=== PATIENT | male | born 1970 | race Caucasian/White ===

== ENCOUNTER 2016-12-09 10:41 | Emergency (ER) | payer SELFPAY ==
[2016-12-09 11:19] VITALS: BP 170/110
--- NOTE | 2016-12-09 12:17 | RAD ---
INDICATION: Traumatic fracture left ankle COMPARISON: None TECHNIQUE: AP, lateral, and oblique views were obtained. FINDINGS: There is a mildly comminuted, oblique fracture of the distal tibial diaphysis with minimal distraction and minimal angular deformity. There is a comminuted, nondisplaced distal fibular metaphyseal fracture. There is associated soft tissue swelling. The ankle mortise is intact. IMPRESSION: TIBIAL AND FIBULAR FRACTURES DESCRIBED.
--- NOTE | 2016-12-09 12:37 | UC ---
Lower Extremity/Ankle HPI - HPI Summary HPI Summary: LEFT ANKLE / LOWER LEG PAIN X 1 DAY TWISTED HIS LEFT ANKLE PLAYING BASKETBALL ONE DAY AGO SEVER PAIN AND SWELLING OF THE LEFT ANKLE AND LOWER LEG CANNOT BEAR WEIGHT - History of Current Complaint Chief Complaint: UCLowerExtremity Stated Complaint: LEFT FOOT SWELLING Time Seen by Provider: 12/09/16 11:03 Hx Obtained From: Patient Onset/Duration: Sudden Onset, Lasting Days - 1, Still Present Severity Initially: Severe Severity Currently: Severe Aggravating Factor(s): Standing, Ambulation Alleviating Factor(s): Rest, Elevation, Ice Able to Bear Weight: No - Allergies/Home Medications Allergies/Adverse Reactions: Allergies Allergy/AdvReac Type Severity Reaction Status Date / Time No Known Allergies Allergy Verified 12/09/16 11:06 Home Medications: Home Medications Blood Pressure Med 1 tab QPM 12/09/16 [History Confirmed 12/09/16] PMH/Surg Hx/FS Hx/Imm Hx Cardiovascular History: Hypertension - Surgical History Surgical History: None - Family History Known Family History: Positive: Hypertension - Social History Alcohol Use: Occasionally Substance Use Type: None Smoking Status (MU): Current Every Day Smoker Amount Used/How Often: 1/2 ppd - Immunization History Most Recent Influenza Vaccination: NONE 2015 Most Recent Tetanus Shot: UTD Most Recent Pneumonia Vaccination: N/A Review of Systems Constitutional: Negative Skin: Negative Eyes: Negative ENT: Negative Respiratory: Negative Cardiovascular: Negative Musculoskeletal: Other: - LEFT ANKLE PAIN All Other Systems Reviewed And Are Negative: Yes Physical Exam Triage Information Reviewed: Yes Appearance: Well-Appearing, Well-Nourished, Pain Distress Vital Signs: Initial Vital Signs Temp 99.2 F 12/09/16 11:07 Pulse 91 12/09/16 11:07 Resp 16 12/09/16 11:07 BP 175/104 12/09/16 11:07 Pulse Ox 98 12/09/16 11:07 Vital Signs Reviewed: Yes Eyes: Positive: Conjunctiva Clear ENT: Positive: Normal ENT inspection, Hearing grossly normal, Pharynx normal Neck exam: Normal Respiratory: Positive: Chest non-tender, Lungs clear, Normal breath sounds Cardiovascular: Positive: RRR, No Murmur, Pulses Normal Musculoskeletal: Positive: Other: - LEFT ANKLE : + SWELLING, + DIFFUSE TENDERNESS, SEVER TENDERNESS DISTAL TIB/FIB AREA LIMITED ROM DUE TO SEVER PAIN . NORMAL MOSQUERA TEST Diagnostics - Laboratory Diagnostic Studies Completed/Ordered: FINDINGS: There is a mildly comminuted, oblique fracture of the distal tibial diaphysis. with minimal distraction and minimal angular deformity. There is a comminuted,. nondisplaced distal fibular metaphyseal fracture. There is associated soft tissue. swelling. The ankle mortise is intact. IMPRESSION: TIBIAL AND FIBULAR FRACTURES DESCRIBED. Lower Extremity Course/Dx - Differential Dx/Diagnosis Provider Diagnoses: FRACTURE LEFT TIB/FIB Discharge - Discharge Plan Condition: Stable Disposition: HOME Prescriptions: HYDROcodone/ACETAMIN 5-325 MG* [[place] 5-325 TAB*] 1 tab PO Q6H PRN #20 tab MDD 4 TABS PER DAY PRN Reason: Pain Patient Education Materials: Leg Fracture (ED) Referrals: Jurgen Riley MD [Primary Care Provider] -
== END 2016-12-09 13:06 | disposition home or self-care (01) ==
LOC: UCCORT 10:41 → UNDOADMIN 12-13 23:48 → SSU 12-13 23:48
DX: S82.302A Unspecified fracture of lower end of left tibia, initial encounter for closed fracture (principal); S82.832A Other fracture of upper and lower end of left fibula, initial encounter for closed fracture; X50.1XXA Overexertion from prolonged static or awkward postures, initial encounter; Y93.67 Activity, basketball; Y92.9 Unspecified place or not applicable; I10 Essential (primary) hypertension; F17.210 Nicotine dependence, cigarettes, uncomplicated
CPT/HCPCS: 99203; G0463

== ENCOUNTER 2016-12-13 12:46 | Observation (INO) | payer SELFPAY ==
[~2016-12-13 12:46] MED LIST: Buffered Lidocaine 0.9% SYRIN* 5 ML/SYR SYRINGE INTRADERM ONE; Sodium Citrate/Citric Acid* 15 ML UDC PO ONE
[2016-12-13] MEDS ORDERED: Sodium Citrate/Citric Acid* 15 ML UDC ONE (13:09)
[2016-12-13] MEDS ORDERED: ceFAZolin 2 GM PREMIX(*) 2 GM/50 ML BAG IVPB ONE (13:09)
[2016-12-13] MEDS ORDERED: Buffered Lidocaine 0.9% SYRIN* 5 ML/SYR SYRINGE ONE (13:09)
[2016-12-13] MEDS ORDERED: Labetalol IV* 5 MG/ML 20 ML VIAL ONE ×2 (14:08→22:26)
[2016-12-13 15:12] LABS: BUN/Creatinine Ratio 10.3 (8-20); Calcium 9.2 mg/dL (8.6-10.3); EGFR African American 160.7 (>60); Potassium 3.9 mmol/L (3.5-5.0)
--- NOTE | 2016-12-13 15:19 | CONSULT ---
Subjective Date of Service: 12/13/16 Interval History: This is a 46 yo male with history of HTN who presented for ORIF of his L tib/ fib with Dr Pedroza. Patient sustained the fracture 12/09 and was seen in urgent care at that time. Patient has not been seen by his PCP, Dr Riley, in ~4 years. He was previously treated for HTN with HCTZ and doxazosin per last progress notes. Patient states that he has continued treatment of his HTN with lisinopril despite regular medical care, but getting it from a friend. He states the medication most days. When he was seen at 12/09 BP was 175/[address] Pedroza' office 12/10 it was 180/121 mmHg, he was complaining of pain on both occasions. Patient denies CP, SOB, orthopnea, LE edema, abd pain, n/v. No recent illness, fever or chills. 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 He can easily climb a flight of stairs or walk a city block without SOB. He denies family history of cardiac disease. He does admit to 1/2-1 pack of cigarettes daily and ~15 beers weekly. Last drink was last night. Initial BP in pre-op area was 168/103, he received IV labetolol with mild improvement. Hospitalist group was asked to evaluate by anesthesia due to his hypertension. Review of Systems - Measurements Intake and Output: Intake and Output Last 24 Hours 12/11/16 12/12/16 12/13/16 12/14/16 06:59 06:59 06:59 06:59 Weight 70.307 kg 61.689 kg - Review of Systems General Comments: Please see HPI, all other systems reviewed and otherwise negative. Objective Active Medications: Citric Acid/Sodium Citrate (Bicitra*) 15 ml PO ONCE ONE Stop: 12/13/16 06:01 Lactated Ringer's (Lactated Ringers 1000 Ml Bag*) 1,000 mls @ 125 mls/hr IV PER RATE JUAN JOSE Last Admin: 12/13/16 13:21 Dose: 125 mls/hr Lidocaine/Sodium Bicarbonate (Buffered Lidocaine 0.9% Syrin*) 0.2 ml INTRADERM ONCE ONE Stop: 12/13/16 06:01 Last Admin: 12/13/16 13:21 Dose: 1 applic Home Medications Medication Instructions Recorded Confirmed Type HYDROcodone/ACETAMIN 5-325 MG* 1 tab PO Q6H PRN #20 tab MDD 4 12/09/16 12/13/16 Rx [[place] 5-325 TAB*] TABS PER DAY Lisinopril [Zestril 5 MG-] 2.5 mg PO QPM 12/10/16 12/13/16 History Vital Signs 12/13/16 13:15 Temperature 99.5 F Pulse Rate 100 Respiratory 18 Rate Blood Pressure 168/103 (mmHg) O2 Sat by Pulse 97 Oximetry Oxygen Devices in Use Now: None Appearance: Well appearing and in NAD, although he is anxious appearing. Accompanied by family. Respiratory: Symmetrical Chest Expansion and Respiratory Effort, Clear to Auscultation Cardiovascular: NL Sounds; No Murmurs; No JVD, RRR Abdominal: NL Sounds; No Tenderness; No Distention Extremities: No Edema, - - LLE in splint Skin: No Rash or Ulcers Neurological: Alert and Oriented x 3 Result Diagrams: 12/13/16 14:38 Diagnostic Imaging: EKG - sinus rhythm, LVH by voltage criteria Assessment/Plan - Billing Assessment: This is a 46 yo gentleman with HTN with plans to undergo tib/fib ORIF later today with Dr Pedroza who is noted to be hypertensive pre- operatively. Hospitalist group has been asked to consult Plan By Medical Problem: 1. Hypertension - Patient appears to have chronic hypertension that is poorly controlled. EKG shows LVH by voltage criteria. Patient has no symptoms or exam findings of acute CHF. Recommend BMP to eval for electrolyte abnormalities and/or ARF, seeing as his lisinopril use has gone unmonitored. Patient can been managed perioperatively with labetolol and/or hydralazine per anesthesia. Patient is agreeable to follow up with his PCP for further BP management. Will also plan to send 30d prescription for antihypertensive medications to his usual pharmacy. 2. L Tib/fib fracture - Plan to proceed with planned ORIF pending results of CBC/BMP. RCRI score of 0, placing him at 0.8% risk for perioperative cardiovascular complications. 3. Tobacco abuse - recommended cessation Code Status: FULL CODE Admission Status and Rationale: Plan for discharge postoperatively from PACU
[2016-12-13 15:29] LABS: Hematocrit 42 % (42-52); Hemoglobin 14.3 g/dl (14.0-18.0); Mean Corpuscular HGB Conc 34 g/dl (31-36); Mean Corpuscular Hemoglobin 34 pg (27-31); Mean Corpuscular Volume 100 fL (80-94); Mean Platelet Volume 8 um3 (7.4-10.4); Red Blood Count 4.23 10^6/ul (4.0-5.4); Red Cell Distribution Width 14 % (10.5-15); White Blood Count 11.4 10^3/ul (3.5-10.8)
[2016-12-13] MEDS ORDERED: Lidocaine 2% PF * 5 ML VIAL ONE (16:47)
[2016-12-13] MEDS ORDERED: Propofol* 10 MG/ML 20 ML BTL IV PUSH ONE ×2 (16:47→17:52)
[2016-12-13] MEDS ORDERED: Rocuronium* 10 MG/ML VIAL ONE (16:47)
[2016-12-13] MEDS ORDERED: Midazolam* 1 MG/ML 2 ML VIAL (2 MG) ONE (16:48)
[2016-12-13] MEDS ORDERED: fentaNYL* 50 MCG/ML 2 ML VIAL (100 MCG VIAL) ONE ×4 (16:48→23:13)
[2016-12-13] MEDS ORDERED: Bupivacaine 0.25% SDV* 30 ML ONE ×2 (17:03→21:24)
[2016-12-13] MEDS ORDERED: KETAMINE HCL* 50 MG/ML 10 ML VIAL ONE (17:54)
[2016-12-13] MEDS ORDERED: Dexamethasone IV* 4 MG/ML 1 ML (4 MG) ONE (18:22)
[2016-12-13] MEDS ORDERED: Ondansetron INJ* 2 MG/ML VIAL IV PRN (21:53)
[2016-12-13] MEDS ORDERED: Acetaminophen TAB* 325 MG PO PRN (21:53)
[2016-12-13] MEDS ORDERED: Morphine INJ* 2 MG/ML 1 ML SYRINGE IV PRN (21:53)
[2016-12-13] MEDS ORDERED: Ketorolac INJ* 30 MG/ML 1 ML VIAL IV PRN (22:01)
[2016-12-13] MEDS ORDERED: Ketorolac INJ* 30 MG/ML 1 ML VIAL ONE (22:05)
[2016-12-13] MEDS: fentaNYL* 50 MCG/ML 2 ML VIAL (100 MCG VIAL) IV PRN ×3 (22:23→23:15)
[2016-12-13] MEDS ORDERED: oxyCODONE/Acetamin 5/325 MG* TAB ONE (22:42)
[2016-12-13] MEDS: oxyCODONE/Acetamin 5/325 MG* TAB PO PRN (22:43)
--- NOTE | 2016-12-13 22:44 | PN ---
Hospitalist Progress Note Notified by OR nursing staff that patient will be spending the night for further monitoring. No perioperative complications. Improved BP control. Admission orders written by Dr Pedroza. Lisinopril and metoprolol ordered for tomorrow am.
[2016-12-13] MEDS ORDERED: hydrALAZINE IV* 20 MG/ML VIAL ONE (22:58)
[2016-12-14] MEDS: oxyCODONE/Acetamin 5/325 MG* TAB PO PRN ×2 (02:56→08:29)
--- NOTE | 2016-12-14 07:18 | RAD ---
INDICATION: Left ankle fracture, operative reduction and internal fixation. COMPARISON: Comparison is made with a prior x-ray study of the lower leg from December 09, 2016. TECHNIQUE: 88 seconds of intermittent fluoroscopic guidance were provided and 11 spot films of the left lower leg were obtained in the operating room. FINDINGS: The films demonstrate a surgical metallic right present along the lateral aspect of the distal fibula spanning the fracture fragments transfixed with multiple screws. There is placement of an intramedullary anna in the tibia spanning the fracture of the distal tibia transfixed distally and proximally with surgical screws. IMPRESSION: INTRAOPERATIVE CONTROL FILMS. CPT II Codes: 6045F
--- NOTE | 2016-12-14 07:24 | RAD ---
INDICATION: Possible foreign body aspiration. COMPARISON: There are no prior studies available for comparison. TECHNIQUE: A portable view of the chest was obtained. FINDINGS: Cardiac and mediastinal contours appear to be within normal limits. The lungs are hyperinflated and clear. No pleural effusion is seen. No repeat foreign body is seen. IMPRESSION: 1. NO RADIO OPAQUE FOREIGN BODY IS SEEN. 2. FINDINGS SUGGESTIVE OF COPD, NO EVIDENCE FOR ACUTE FINDING.
--- NOTE | 2016-12-14 08:00 | PN ---
Subjective Date of Service: 12/14/16 Interval History: Patient seen and examined at bedside. Mr. Clark reports good pain control, denies fever/chills, chest pain, SOB or other complaint. We discussed his high blood pressure; patient is in agreement to take his medication (lisinopril and metoprolol XL) as prescribed. He states he will call Dr. Riley in [place] when he gets home to make a follow-up appointment. No other acute concerns at this time. Family History: Unchanged from Admission Social History: Unchanged from Admission Past Medical History: Unchanged from Admission Objective Active Medications: Acetaminophen (Tylenol Tab*) 650 mg PO Q6H PRN PRN Reason: TEMP GREATER THAN 101.5 F Enoxaparin Sodium (Lovenox(*)) 40 mg SUBCUT Q24H ONE Stop: 12/14/16 09:01 Lactated Ringer's (Lactated Ringers 1000 Ml Bag*) 1,000 mls @ 100 mls/hr IV PER RATE JUAN JOSE Last Admin: 12/13/16 23:45 Dose: 100 mls/hr Lisinopril (Prinivil Tab*) 10 mg PO DAILY [facility] Metoprolol Succinate (Toprol Xl Tab*) 50 mg PO DAILY [facility] Morphine Sulfate (Morphine Inj (Syringe)*) 2 mg IV Q2H PRN PRN Reason: PAIN Ondansetron HCl (Zofran Inj*) 4 mg IV Q6H PRN PRN Reason: NAUSEA Oxycodone/Acetaminophen (Percocet 5/325 Tab*) 2 tab PO Q4H PRN PRN Reason: PAIN Last Admin: 12/14/16 02:56 Dose: 2 tab Vital Signs 12/13/16 12/13/16 12/13/16 13:15 21:50 21:55 Temperature 99.5 F 98.1 F Pulse Rate 100 106 105 Respiratory 18 18 18 Rate Blood Pressure 168/103 141/98 144/106 (mmHg) O2 Sat by Pulse 97 98 99 Oximetry 12/13/16 12/13/16 12/13/16 22:00 22:15 22:23 Temperature Pulse Rate 107 92 Respiratory 18 14 16 Rate Blood Pressure 150/104 165/99 (mmHg) O2 Sat by Pulse 97 96 Oximetry 12/13/16 12/13/16 12/13/16 22:30 22:35 22:37 Temperature Pulse Rate 93 86 Respiratory 16 14 18 Rate Blood Pressure 143/104 157/100 (mmHg) O2 Sat by Pulse 98 97 Oximetry 12/13/16 12/13/16 12/13/16 22:43 22:45 22:50 Temperature Pulse Rate 81 86 Respiratory 14 14 16 Rate Blood Pressure 166/100 164/99 (mmHg) O2 Sat by Pulse 100 97 Oximetry 12/13/16 12/13/16 12/13/16 23:00 23:10 23:15 Temperature Pulse Rate 75 87 88 Respiratory 12 14 14 Rate Blood Pressure 158/97 141/97 136/84 (mmHg) O2 Sat by Pulse 100 99 98 Oximetry 12/13/16 12/13/16 12/14/16 23:24 23:44 00:16 Temperature 97.9 F 97.9 F Pulse Rate 86 89 89 Respiratory 14 16 16 Rate Blood Pressure 143/89 156/87 156/87 (mmHg) O2 Sat by Pulse 98 99 99 Oximetry 12/14/16 12/14/16 12/14/16 00:53 00:59 02:05 Temperature 98.6 F 97.7 F Pulse Rate 86 82 Respiratory 16 16 16 Rate Blood Pressure 126/66 129/81 (mmHg) O2 Sat by Pulse 95 99 Oximetry 12/14/16 12/14/16 12/14/16 02:56 03:45 04:56 Temperature 97.5 F Pulse Rate 77 Respiratory 16 16 16 Rate Blood Pressure 109/69 (mmHg) O2 Sat by Pulse 99 Oximetry 12/14/16 05:50 Temperature 97.5 F Pulse Rate 83 Respiratory 16 Rate Blood Pressure 118/81 (mmHg) O2 Sat by Pulse 99 Oximetry Oxygen Devices in Use Now: None Appearance: Well appearing, middle aged male, lying in bed, NAD Eyes: PERRLA Ears/Nose/Mouth/Throat: Clear Oropharnyx, Mucous Membranes Moist Neck: NL Appearance and Movements; NL JVP Respiratory: Symmetrical Chest Expansion and Respiratory Effort, Clear to Auscultation Cardiovascular: NL Sounds; No Murmurs; No JVD, RRR Abdominal: NL Sounds; No Tenderness; No Distention Extremities: No Clubbing, Cyanosis, - - LLE with splint and bulky dressing in place, did not remove. No drainage noted. Good capillary refill, movement, sensation to toes Neurological: Alert and Oriented x 3, NL Muscle Strength and Tone Lines/Tubes/Other Access: Clean, Dry and Intact Peripheral IV Nutrition: Taking PO's Result Diagrams: 12/13/16 13:18 12/13/16 14:38 Diagnostic Imaging: EKG - sinus rhythm, LVH by voltage criteria Assess/Plan/Problems-Billing Assessment: This is a 46 yo gentleman with HTN that was admitted for a tib/fib ORIF with Dr Pedroza on 12/13/16; he as noted to be hypertensive pre-operatively and stayed overnight for further observation and monitoring. - Patient Problems (1) Fracture of left tibia and fibula Code(s): S82.202A - UNSP FRACTURE OF SHAFT OF LEFT TIBIA, INIT FOR CLOS FX; S82.402A - UNSP FRACTURE OF SHAFT OF LEFT FIBULA, INIT FOR CLOS FX Comment: POD #1 - ORIF Management per ortho (2) HTN (hypertension) Code(s): I10 - ESSENTIAL (PRIMARY) HYPERTENSION Comment: Currently normotensive Continue lisinopril, metoprolol succinate. Appears to have poor control in the outpatient setting EKG shows LVH by voltage criteria, no s/s or exam findings of acute CHF. Patient is agreeable to follow up with his PCP for further BP management. 30d prescription for antihypertensive medications has been sent to his usual pharmacy. (3) Tobacco abuse Code(s): Z72.0 - TOBACCO USE Comment: Patient advised to quit smoking. Continue smoking cessation education. (4) DVT prophylaxis Code(s): KRP9240 - Comment: Per ortho SQ Lovenox Status and Disposition: Dispo per ortho. Hospitalist co-medical management. Recommend close follow-up with PCP for further BP monitoring and medication adjustment.
[2016-12-14 08:36] VITALS: BP 126/68
[2016-12-14] MEDS ORDERED: Metoprolol Succinate XL TAB* 50 MG PO SCH (09:00)
[2016-12-14] MEDS ORDERED: Enoxaparin(*) 40 MG/0.4 ML SYR SUBCUT ONE (09:00)
[2016-12-14] MEDS ORDERED: Lisinopril TAB* 10 MG PO SCH (09:00)
--- NOTE | 2016-12-14 12:36 | PN ---
Progress Note - Progress Note Date of Service: 12/14/16 SOAP: Subjective: []Patient seen at bedside with leg elevated on pillows, doing well. Pain well managed, ambulated around unit this am ttwb without difficulty. Objective: [] Vital Signs Temp 97.9 F 12/14/16 07:20 Pulse 77 12/14/16 07:20 Resp 18 12/14/16 10:29 BP 126/68 12/14/16 07:20 Pulse Ox 98 12/14/16 08:00 Intake & Output 12/13/16 12/14/16 12/14/16 18:59 06:59 18:59 Intake Total 2381 440 Output Total 700 Balance 1681 440 Weight 136 lb Intake: IV Fluids 2381 LR 2381 Oral 440 Output: Urine 700 Other: Estimated Blood Loss <50 Comment Laboratory Results - last 24 hr 12/13/16 12/13/16 13:18 14:38 WBC 11.4 H RBC 4.23 Hgb 14.3 Hct 42 MCV 100 H MCH 34 H MCHC 34 RDW 14 Plt Count 209 MPV 8 Neut % (Auto) 77.7 Lymph % (Auto) 13.4 L Coffey % (Auto) 7.2 Eos % (Auto) 0.8 Baso % (Auto) 0.9 Absolute Neuts (auto) 8.9 H Absolute Lymphs (auto) 1.5 Absolute Monos (auto) 0.8 Absolute Eos (auto) 0.1 Absolute Basos (auto) 0.1 Absolute Nucleated RBC 0.01 Nucleated RBC % 0 Sodium 135 Potassium 3.9 Chloride 103 Carbon Dioxide 24 Anion Gap 8 BUN 7 Creatinine 0.68 Est GFR ( Amer) 160.7 Est GFR (Non-Af Amer) 125.0 BUN/Creatinine Ratio 10.3 Glucose 82 Calcium 9.2 Left LE on 2 pillows HUANG clean, dry and intact toes pink and warm with full sensation Assessment: []s/p ORIF left distal fibula/ IM nailing left tibia POD#1 Plan: []TTWB LLE Percocet ASA 325mg BID Discharge home today Follow up 10- [address] Pedroza
--- NOTE | 2016-12-14 17:53 | OP ---
DATE OF OPERATION: 12/13/16 - ROOM #335 DATE OF : 68 SURGEON: Amadeo Pedroza MD OPERATIONS AND MAINTENANCE TECHNICIAN: BENIGNO Hinojosa. An clinical trials assistant was needed for the entirety of the procedure to assist with holding the leg, reduction, and instrumentation. ANESTHESIOLOGIST: Dr. Noble. ANESTHESIA: General. PRE-OP DIAGNOSIS: Left distal third tibia fracture with associated distal fibular fracture, spiralling down to the joint line level. POST-OP DIAGNOSIS: Left distal third tibia fracture with associated distal fibular fracture, spiralling down to the joint line level. OPERATIVE PROCEDURE: 1. Open reduction internal fixation left distal fibula. 2. Open reduction and intramedullary fixation, left tibia fracture. INDICATIONS: Rex fractured the leg last week playing basketball, he stepped into a hole. He presented to [facility], where x-rays showed distal third tibial shaft fracture with associated distal fibula fracture. It was in 10 degrees of varus. The fibula was slightly shortened. We talked about risks and benefits of surgical intervention including the risk of infection or risk of nonunion among others. We also talked about potential casting of the fracture with wedging of the cast. He wanted to proceed with surgical realignment of the bone. ESTIMATED BLOOD LOSS: 50 mL. COMPLICATIONS: None. FINDINGS: As expected. DESCRIPTION OF PROCEDURE: Rex was seen in the preoperative holding area. The correct side, site, and procedure were identified. We then came back to the operating room, where anesthesia was induced. The leg was scrubbed and prepped and draped in usual fashion. An upper leg tourniquet was applied. A formal time-out was then performed. The leg was exsanguinated using the Esmarch and the tourniquet inflated to 300 mmHg. I began by making a longitudinal incision in line with the distal fibula. Full thickness sub periosteal flaps were raised. Fracture site was cleaned and then clamped in alignment. I attempted to place an anterior to posterior lag screw, however, the 3.5 drill bit fractured the anterior spike of cortex. I therefore compressed the fracture nicely with the clamp and then secured the [place] distal fibular plate proximally with 3.5 cortical screws and then distally with 3.5 unicortical locking screws. The alignment was anatomic. Everything was confirmed with fluoroscopy including the alignment, the hardware, and the screw lengths. Once I had that reduced and the fixation correct, I went ahead and irrigated out the wound. The periosteum was closed over the plate with 2-0 Vicryl suture. The skin was closed with yudith. I then turned my attention to the tibia. I brought in the C-arm and checked the alignment. It was still in varus. I attempted to closed reduce it, however , given the relatively simple nature of the fracture, I found this difficult to closed reduce and maintain adequate alignment, sufficient enough that I felt like I could correctly pass the nail. I, therefore made a postero-medial incision about 10 cm in length right over the fracture site. The saphenous neurovascular bundle was identified and retracted posteriorly. I then raised the subperiosteal flap over the tibia and was able to place a point reduction clamp and anatomically align the fracture; this was confirmed on fluoroscopy. The clamp was holding very nicely. I contemplated placing a unicortical plate; however, the clamp was holding so nicely, I elected to attempt to place the nail with just the clamp in place. I went ahead and brought the knee up into flexion with the use of the radiolucent triangle. I then made a longitudinal incision directly centered over the patellar tendon. Full thickness flaps were raised off the paratenon medially and laterally. I then incised the paratenon and then split the tendon in line with its fibers. I brought in my starting pin and obtained the correct starting point just on the medial aspect of the lateral tibial eminence and in the correct location on the sagittal plane as well. I introduced the guidepin down the canal and then brought in the starting reamer and opened up my entry point. I then took the ball tip guidewire and placed a small bend on the end of the wire. I then passed this down into the center-center position, at the level of the physeal scar distally. The reduction was checked and was maintained throughout the passing of the wire. I then started with a #8 reamer and reamed up to 10.5. That was excellent chatter and so I elected to have a 9 mm [place] T2 nail. I measured and selected a 350 mm nail. This was then passed down to the level of the tibial spine. The reduction was held by the clamp. I did place a second point reduction clamp while I was passing the nail. After the nail was in the appropriate location distally, I brought in the proximal guide and clamped this into place. I then placed 2 Crosslock screws through the nail. These were the medial, lateral, and oblique screws. These were measured and placed in standard fashion using the triple barrel guide. Ultimately, I did initially placed the medial to lateral screw and then decided it was too long, so I took that off and placed a slightly shorter medial to lateral oblique screw. The length was very nice. At this point, the tourniquet was at 150 minutes and so I went ahead and held some pressure on the wound and deflated the tourniquet. There was good hemostasis. So, I therefore went ahead and got perfect circles from my anterior to posterior Crosslock screws distally. This was placed again using perfect circular technique. Care was taken to not disrupt the anterior tibial artery neurovascular bundle. With the proximal and distal Crosslocks in place, I irrigated out all the wounds copiously. Final fluoroscopic images were obtained. During the placement of the Crosslock screws, I had gotten just a tiny gap at the fracture site, maybe a millimeter by size. This was certainly adequate, so I went ahead and irrigated out the wounds copiously. I then reapproximated the periosteum on the posteromedial wound with 2-0 Polysorb suture. The subcutaneous tissue was reapproximated with 2- 0 Polysorb suture and the skin was closed with yudith. All of the puncture wounds for the Crosslock screws were irrigated and closed with yudith. The knee joint was copiously irrigated. The patellar tendon was repaired with 0 Vicryl, the paratenon was repaired with 2-0 Vicryl, the dermis was reapproximated with 2-0 Vicryl and then the skin was closed with yudith. With all the wounds closed, I infiltrated the operative wounds with 0.25% plain Marcaine. The wounds were dressed with Xeroform, 4x4, sterile Webril, and an ABD distally, and then a short leg splint up to the level of the knee joint down to the end of the toes was placed using a posterior and anterior slab. With the splint in place, he was then woken up and taken to recovery room in stable condition. POSTOPERATIVE PLAN: He will be in the splint for another week and half. We will keep him overnight in the hospital and monitor him for pain control and given his history of significant alcohol use, we will monitor him closely. He has been instructed to elevate nice the leg. The weightbearing will be touch down weightbearing for now. [id number]/[facility] #: [id number] RELL
--- NOTE | 2016-12-15 03:35 | DS ---
DISCHARGE SUMMARY: DATE OF ADMISSION: 12/13/16 DATE OF DISCHARGE: 12/14/16 SURGEON: Amadeo Pedroza MD * (DICTATED BY BENIGNO HAQUE) PRINCIPAL DIAGNOSIS: Left tib-fib fracture. DISCHARGE DIAGNOSIS: Left tib-fib fracture. HOSPITAL COURSE: Mr. Clark is a 46-year-old gentleman, who was admitted to the hospital on 12/13/16 and underwent an ORIF of the left distal fibula with an IM nailing of the left tibia. He tolerated the procedure well. Postoperatively, he was placed on Lovenox for DVT prophylaxis. His overall hospital course was unremarkable and at the time of discharge on 12/14/16, he was afebrile. He was discharged home in stable condition. DISCHARGE MEDICATIONS: 1. Oxycodone 5 mg 1 to 2 tabs every 6 hours as needed for pain. 2. Aspirin 325 twice a day. 3. Labetalol. 4. Lisinopril. 5. Zemuron. 6. Diprivan. PHYSICAL EXAMINATION UPON DISCHARGE: He is afebrile. His vital signs are stable. He is overall neurovascularly intact. He is able to wiggle the toes, has good capillary refill. DISCHARGE INSTRUCTIONS: He was discharged to home in stable condition. He is toe touch weightbearing only. We have asked him to take aspirin 325 twice a day for DVT prophylaxis, another prescription for oxycodone 5 mg was sent to his pharmacy to take 1 to 2 tabs every 4 to 6 hours as needed for pain. He should keep the splint/cast intact and dry until his postoperative appointment with Dr. Pedroza in 10 to 14 days. BENIGNO HAQUE [id number]/[facility] #: [id number] MTDMila
== END 2016-12-14 11:10 | disposition home or self-care (01) ==
LOC: OR 12:46 → INTOOBSV 23:48 → SSU 23:48
PROVIDERS: ADMIT Orthopaedic Surgery Hand Surgery; ATTEND Orthopaedic Surgery Hand Surgery
DX: S82.292A Other fracture of shaft of left tibia, initial encounter for closed fracture (principal); S82.62XA Displaced fracture of lateral malleolus of left fibula, initial encounter for closed fracture; I10 Essential (primary) hypertension; F17.210 Nicotine dependence, cigarettes, uncomplicated; E78.5 Hyperlipidemia, unspecified; W18.31XA Fall on same level due to stepping on an object, initial encounter; Y93.67 Activity, basketball; Y92.9 Unspecified place or not applicable
CPT/HCPCS: 36415; 71010; 76000; 80048; 85025; 93005; 96372; 99284; A9270-GY; C1713; C1776; G0378; G8978-GP-CI; G8979-GP-CI; G8980-GP-CI; J0360; J0690; J1100; J1650; J1885; J2250; J2704; J3010

== ENCOUNTER 2017-02-16 08:13 | Observation (INO) | payer MEDICAID, OTHER ==
[~2017-02-16 08:13] MED LIST changes: +Famotidine IV* 10 MG/ML 2 ML (20 mg) IV ONE; +Metoclopramide TAB* 10 MG PO ONE; -Sodium Citrate/Citric Acid* 15 ML UDC PO ONE
[2017-02-16] MEDS ORDERED: Famotidine IV* 10 MG/ML 2 ML (20 mg) ONE (08:21)
[2017-02-16] MEDS ORDERED: Buffered Lidocaine 0.9% SYRIN* 5 ML/SYR SYRINGE ONE (08:22)
[2017-02-16] MEDS ORDERED: ceFAZolin 2 GM PREMIX (*) 50 ML IVPB ONE (08:22)
[2017-02-16] MEDS ORDERED: Metoclopramide TAB* 10 MG ONE (08:22)
[2017-02-16] MEDS ORDERED: KETAMINE HCL* 50 MG/ML 10 ML VIAL ONE (09:22)
[2017-02-16] MEDS ORDERED: fentaNYL* 50 MCG/ML 2 ML VIAL (100 MCG VIAL) ONE ×4 (09:22→13:11)
[2017-02-16] MEDS ORDERED: Dexamethasone IV* 4 MG/ML 1 ML (4 MG) ONE (09:22)
[2017-02-16] MEDS ORDERED: Lidocaine 2% PF * 5 ML VIAL ONE (09:22)
[2017-02-16] MEDS ORDERED: Ondansetron INJ* 2 MG/ML VIAL ONE (09:22)
[2017-02-16] MEDS ORDERED: Propofol* 10 MG/ML 20 ML BTL IV PUSH ONE (09:22)
[2017-02-16] MEDS ORDERED: Ketorolac INJ* 30 MG/ML 1 ML VIAL ONE (09:22)
[2017-02-16] MEDS ORDERED: Midazolam* 1 MG/ML 5 ML VIAL (5 MG) ONE (09:22)
[2017-02-16] MEDS ORDERED: EPHEDrine (Pressors)* 50 MG/ML VIAL ONE (10:33)
[2017-02-16] MEDS ORDERED: Bupivacaine 0.5% SDV PF* 30 ML VIAL ONE (10:34)
[2017-02-16] MEDS ORDERED: HYDROmorphone INJ* 1 MG/ML CARPUJECT SYRINGE IV PRN (11:02)
[2017-02-16] MEDS ORDERED: oxyCODONE/Acetamin 5/325 MG* TAB PO PRN ×2 (11:02→12:39)
[2017-02-16] MEDS ORDERED: Ondansetron INJ* 2 MG/ML VIAL IV PRN ×2 (11:02→12:39)
[2017-02-16] MEDS ORDERED: HYDROmorphone INJ* 1 MG/ML CARPUJECT SYRINGE ONE (11:41)
[2017-02-16] MEDS ORDERED: Polyethylene Glycol 3350* 17 GM PACKET PO PRN (12:39)
[2017-02-16] MEDS ORDERED: Magnesium Hydroxide LIQ* 30 ML UDC PO PRN (12:39)
[2017-02-16] MEDS ORDERED: traZODone TAB* 50 MG TAB PO PRN (12:39)
[2017-02-16] MEDS ORDERED: diPHENhydraMINE IV* 50 MG/ML 1 ml VIAL (BENADRYL) IV PRN (12:39)
[2017-02-16] MEDS ORDERED: Morphine INJ* 2 MG/ML 1 ML SYRINGE (TWO MG - NEW SYRINGE VERSION) IV PRN (12:39)
[2017-02-16] MEDS ORDERED: Acetaminophen TAB* 325 MG PO PRN (12:39)
[2017-02-16] MEDS ORDERED: Bisacodyl SUPP* 10 MG SUPP PR PRN (12:39)
[2017-02-16] MEDS ORDERED: Zosyn per Pharmacy* NOTE FOLLOW UP SCH (13:00)
[2017-02-16] MEDS ORDERED: Vancomycin per Pharmacy* NOTE FOLLOW UP SCH (13:00)
[2017-02-16] MEDS ORDERED: oxyCODONE/Acetamin 5/325 MG* TAB ONE (13:11)
[2017-02-16] MEDS: fentaNYL* 50 MCG/ML 2 ML VIAL (100 MCG VIAL) IV PRN ×2 (13:14→13:29)
[2017-02-16] MEDS: oxyCODONE/Acetamin 5/325 MG* TAB PO PRN (16:21)
[2017-02-16] MEDS ORDERED: Vancomycin(*) 1,000 MG in NS 0.9% 250 ML* 250 ML IVPB ONE (17:00)
[2017-02-16] MEDS: oxyCODONE TAB* 5 MG TAB PO PRN (19:38)
[2017-02-16] MEDS: ZOSYN 3.375 GM Q8H per EXTENDED INFUSION IVPB SCH ×2 (20:47)
[2017-02-17] MEDS: ZOSYN 3.375 GM Q8H per EXTENDED INFUSION IVPB SCH ×2 (04:33)
[2017-02-17] MEDS: oxyCODONE/Acetamin 5/325 MG* TAB PO PRN ×4 (06:22→23:43)
[2017-02-17 06:53] LABS: BUN/Creatinine Ratio 10.6 (8-20); Calcium 8.8 mg/dL (8.6-10.3); EGFR African American 110.6 (>60); Potassium 4.3 mmol/L (3.5-5.0)
[2017-02-17] MEDS ORDERED: Lisinopril TAB* 10 MG PO SCH ×2 (09:00→09:16)
[2017-02-17] MEDS ORDERED: Metoprolol Succinate XL TAB* 50 MG PO SCH ×2 (09:00→09:17)
[2017-02-17] MEDS: oxyCODONE TAB* 5 MG TAB PO PRN ×2 (09:19→15:46)
--- NOTE | 2017-02-17 10:37 | RAD ---
INDICATION: Hardware removal COMPARISON: February 01, 2017 FINDINGS: 13.4 seconds of fluoroscopy was provided for the orthopedics department. Fluoroscopic spot imaging of the left lower leg were obtained for operative control. CPT II Codes: 6045F (fluoro time doc)
[2017-02-17] MEDS ORDERED: ceFAZolin* 2 GM in NS 100 MLS Q8HR IVPB SCH (12:30)
[2017-02-17] MEDS ORDERED: CEFAZOLIN IVPB SCH (12:46)
--- NOTE | 2017-02-17 12:53 | PN ---
Progress Note - Progress Note Date of Service: 02/17/17 SOAP: Subjective: []Patient seen at bedside, c/o mild to moderate left ankle pain. He is keeping the leg elevated, understands he will be here until he receives PIC line and his antibiotic infusions are arranged. Objective: [] Vital Signs Temp 97.9 F 02/17/17 11:17 Pulse 57 02/17/17 11:17 Resp 16 02/17/17 11:17 BP 90/59 02/17/17 11:17 Pulse Ox 100 02/17/17 11:17 Intake & Output 02/16/17 02/17/17 02/17/17 18:59 06:59 18:59 Intake Total 3224 600 614 Output Total 420 598 2581 Balance 2724 -325 -436 Weight 135 lb 12.8 oz Intake: IV Fluids 2549 100 254 LR 219 NS 50ML, Cefazolin 2G 50 lr 2150 ns 20 39 zosyn 110 100 215 Oral 675 500 360 Output: Urine 971 256 0036 Laboratory Results - last 24 hr 02/16/17 02/17/17 13:07 06:12 Sodium 137 Potassium 4.3 Chloride 104 Carbon Dioxide 28 Anion Gap 5 BUN 10 Creatinine 0.94 Est GFR ( Amer) 110.6 Est GFR (Non-Af Amer) 86.0 BUN/Creatinine Ratio 10.6 Glucose 111 H Calcium 8.8 C-Reactive Protein 1.79 Microbiology 02/16/17 11:11 Anaerobic Culture - Preliminary Wound - Ankle Left 02/16/17 11:11 Skin and Soft Tissue MRSA/MSSA (PCR - Final Tissue Mrsa Negative S.aureus Positive 02/16/17 11:11 Wound Gram Stain - Final Tissue - Ankle Left 02/16/17 11:11 Gram Stain - Final Ankle Left Left ankle splint is dry and intact toes pink and warm with full sensation Hemovac drain was discontinued without difficulty, tip intact Assessment: []s/p I&D left ankle infection with removal of hardware POD #1 Plan: []NWB LLE PIC line IV Cefazolin per Dr. Salamanca probable discharge home tomorrow if all outpatient IV abx are set up
[2017-02-17] MEDS: CEFAZOLIN IVPB SCH ×2 (12:57→19:50)
[2017-02-17] MEDS: Enoxaparin(*) 40 MG/0.4 ML SYR SUBCUT SCH (13:01)
--- NOTE | 2017-02-17 13:28 | CONS ---
CONSULTATION REPORT: DATE OF CONSULT: 02/17/17 REQUESTING PHYSICIAN: Dr. Pedroza. CONSULTING SERVICE: Infectious Disease. REASON FOR CONSULTATION: Infected fixation hardware. IMPRESSION: 1. Status post open reduction internal fixation, left distal fibula and open reduction intramedulla ry fixation of left tibia fracture, now with breakdown of the left lateral wound with drainage and a ssociated cellulitis, status post removal of fibular hardware. Gram stain shows gram-positive cocci . The PCR shows Staph aureus, MRSA negative. 2. Acute osteomyelitis, left fibula. 3. Hypertension. 4. Tobacco abuse. RECOMMENDATIONS: Agree with stopping vancomycin. We will change the Zosyn to Ancef, he will have 6 weeks of that with weekly CBC, CMP, and CRP. We will work on finding how to get that form as an ou tpatient. HISTORY OF PRESENT ILLNESS: This is a 46-year-old man who had a left ankle fracture, playing basket ball in November. He had fixation as noted above. He was doing well but then had some breakdown of the skin and incision over the last few days and then fluid drainage, redness and some pain. No fevers , chills, or sweats. He was taken to the OR by Dr. Pedroza with removal of the fibular hardware. Gra m stain showed gram-positive cocci. PCR positive for Staph aureus, negative for MRSA. He has been on vancomycin. The vancomycin was stopped today. His leg was casted. He has no pain or prosthetic material present elsewhere. PAST MEDICAL HISTORY: Hypertension, tobacco abuse. MEDICATIONS: 1. Tylenol. 2. Lisinopril. 3. Metoprolol. 4. Zosyn 3.375 g every 8 hours. 5. Oxycodone. 6. Trazodone. FAMILY HISTORY: Noncontributory. SOCIAL HISTORY: Lives in [place]. Works in [employer]. Smokes. No injection drugs. REVIEW OF SYSTEMS: All negative to full review of systems except as noted above, 14-point review of systems. PHYSICAL EXAM: Vital Signs: Temperature 36.7, heart rate is 57, respiratory rate 18, blood pressur e 92/60, oxygen saturation 99% on room air. In general, he is awake, not distress. Neurologic: He is oriented x3, follows all commands. HEENT: There is no conjunctival hemorrhage. Oropharynx with out lesions. Neck: Supple without nuchal rigidity. Lymph Nodes: There is no inguinal, axillary o r epitrochlear lymphadenopathy. Heart has regular rate, rhythm without murmurs, rubs or gallops. L ungs: Clear to auscultation bilaterally. Abdomen: Soft, nontender, nondistended. There are bowel sounds present. Skin: There is no rash or splinter hemorrhages. Musculoskeletal: There is no sp ine tenderness to palpation. The left leg is casted. DIAGNOSTIC STUDIES/LAB DATA: Creatinine 0.9. CRP 2. Please see impressions and recommendations outlined above. Thank you for asking me to see Mr. Clark in consultation. [id number]/[facility] #: [id number]
--- NOTE | 2017-02-17 18:33 | PN ---
Progress Note - Progress Note Date of Service: 02/17/17 Note: Some postop pain, Afebrile, VSS I windowed the splint and looked at the entire wound. Wound is intact. SS drainage on dressings. No purulence. A/P: POD#1 s/p removal of left distal fibula plate for wound breakdown that beginning to occur late and some drainage from the wound. There was no fluid around the proximal tibial crosslocks when I removed those. The medial sided wounds looked good. Nothing looked like it communicated medially. Antibiotics per Dr. Salamanca. Agree with extended course of IV antibiotics. We will have to wait to see if there is any infection of the tibial IM nail. If he is discharged tomorrow, I will see him Tuesday morning at 8 am in my [place] office.
[2017-02-18] MEDS: CEFAZOLIN IVPB SCH ×2 (04:42→12:37)
[2017-02-18 06:42] LABS: Hematocrit 40 % (42-52); Hemoglobin 13.6 g/dl (14.0-18.0)
[2017-02-18 08:28] VITALS: BP 143/86
[2017-02-18] MEDS: oxyCODONE/Acetamin 5/325 MG* TAB PO PRN ×2 (08:36→12:39)
--- NOTE | 2017-02-18 10:06 | PN ---
Progress Note - Progress Note Date of Service: 02/18/17 SOAP: Subjective: CC: ankle infection HPI: 46 yo man hx ORIF L tib/fib now with left lateral ankle wound s/p removal of fibula hardware and some tibial hardware. Ankle pain improving, analgesics help. No fever, rash, or diarrhea. Objective: [] Vital Signs Temp 36.8 C 02/18/17 07:34 Pulse 56 02/18/17 07:34 Resp 16 02/18/17 08:36 BP 143/86 02/18/17 07:34 Pulse Ox 99 02/18/17 07:34 Intake & Output 02/17/17 02/18/17 02/18/17 18:59 06:59 18:59 Intake Total 1170 173 Output Total 1550 1300 Balance -380 -1127 Intake: IV Fluids 275 117 ABX - CEFAZOLIN 57 NS (0.9%) 21 60 ns 39 zosyn 215 IVPB 55 56 ABX - CEFAZOLIN 55 56 Oral 840 0 Output: Urine 1550 1300 Gen:awake, no distress HEENT:PERRL, MMM Heart:RRR no murmur Lungs:CTA BL Abd:+BS NTND soft Skin: no rash MSK: L lower leg casted Laboratory Results - last 24 hr 02/18/17 06:09 Hgb 13.6 L Hct 40 L Microbiology 02/16/17 11:11 Gram Stain - Final Ankle Left Wound Culture - Preliminary Staphylococcus Aureus 02/16/17 11:11 Wound Gram Stain - Final Tissue - Ankle Left Tissue Culture - Preliminary Staphylococcus Aureus 02/16/17 11:11 Anaerobic Culture - Preliminary Wound - Ankle Left Assessment: 1. MSSA L fibula hardware infection and acute osteomyelitis 2. s/p ORIF Left tibia/fibula 3. tobacco abuse Plan: 1. ancef 2 gm IV Q8hrs day ; weekly CBC, CMP, CRP. PICC placement pending. FU with me 1-2 weeks. 35 minutes floor time >50% counseling regarding outpatient IV antibiotics and possible side effects.
--- NOTE | 2017-02-18 11:01 | PN ---
Progress Note - Progress Note Date of Service: 02/18/17 SOAP: Subjective: []Patient seen at bedside, sitting at edge of bed eating breakfast, feeling well. Scheduled for PICC line placement this morning. He feels ready to go home this afternoon. Objective: [] Vital Signs Temp 98.2 F 02/18/17 07:34 Pulse 56 02/18/17 07:34 Resp 16 02/18/17 08:36 BP 143/86 02/18/17 07:34 Pulse Ox 99 02/18/17 07:34 Intake & Output 02/17/17 02/18/17 02/18/17 18:59 06:59 18:59 Intake Total 1170 173 Output Total 1550 1300 Balance -380 -1127 Intake: IV Fluids 275 117 ABX - CEFAZOLIN 57 NS (0.9%) 21 60 ns 39 zosyn 215 IVPB 55 56 ABX - CEFAZOLIN 55 56 Oral 840 0 Output: Urine 1550 1300 Laboratory Results - last 24 hr 02/18/17 06:09 Hgb 13.6 L Hct 40 L Left ankle splint intact, wound evaluated by Dr. Pedroza yesterday. toes remain pink and warm/ NVI distally Assessment: []s/p I&D left distal fibula, removal hardware POD #2 Plan: []Remain NWB LLE Ancef per Dr. Salamanca for 6 weeks, follow up with him in 1-2 weeks Follow up with Dr. Pedroza in [place] Tuesday02/22/17.
[2017-02-18] MEDS: Enoxaparin(*) 40 MG/0.4 ML SYR SUBCUT SCH (12:39)
--- NOTE | 2017-02-18 12:58 | OP ---
OPERATIVE REPORT: DATE OF OPERATION: 02/16/17 - Inpatient, [facility] room 342-02 DATE OF : 68 SURGEON: Amadeo Pedroza MD DIVISION PLANT ENGINEER: None. ANESTHESIOLOGIST: Dr. Nava. ANESTHESIA: General. PRE-OP DIAGNOSIS: Late wound breakdown and postoperative wound infection, status post open reduction internal fixation left distal fibula and intramedullary fixation of left distal third tibial fracture on 12/13/16. POST-OP DIAGNOSIS: Late wound breakdown and postoperative wound infection, status post open reduction internal fixation left distal fibula and intramedullary fixation of left distal third tibial fracture on 12/13/16. OPERATIVE PROCEDURE: 1. Irrigation and debridement, left distal fibula postoperative wound infection 2. Removal of distal fibula plate and screws. 3. Removal of proximal tibial cross locks. INDICATIONS: Rex is a patient who had a distal third tibia and distal fibula fractures back in mid to late November. He was in varus. I talked about treatment options including casting. 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 I talked to him about risks and benefits including the risk of infection. We proceeded with open reduction internal fixation of the left distal fibula fracture and mini open reduction and intramedullary fixation of the tibia fracture. The surgery had gone uneventfully. He had healed uneventfully until he came back to the clinic at 7 weeks postop and he had developed an area of granulation tissue with some questionable drainage but nothing that looked too aggressive. I told him I want to see him in a couple of weeks or if anything progressed, I want to see him sooner. He came back 2 weeks later and he had developed a second area a little bit more distal to that that was now draining. Additionally, the more proximal site had enlarged and was now three quarters a centimeter in diameter. I told him that we should remove the distal fibula plate and do an I and D. I took a culture in the office and we planned for surgery the following day. ESTIMATED BLOOD LOSS: 15 mL. COMPLICATIONS: None. FINDINGS: There actually was not too much fluid or purulence around the plate. There definitely was some sinus tract that looked contaminated. It did not look like anything extended medially. When I did the first part of the case of just removal of the proximal tibia cross locks, there was not any fluid around the screws. They had good purchase. DESCRIPTION OF PROCEDURE: Rex was seen in the preoperative holding area. The correct side, site, and procedure were identified. We came back to the operating room where anesthesia was induced. The leg was prepped and draped in the usual fashion. A time-out was performed. I began the cleaning portion of the case, which was removal of the proximal tibial cross locks. I exsanguinated the leg with the Esmarch and tourniquet was inflated to 300 mmHg. I utilized just prior cross lock stab incisions, first opened up the skin overlying the lateral cross lock. Dissection was carried down until the screw was encountered. Soft tissue was released around the screw and it was removed in standard fashion. I then went to the medial side and again utilized the prior incision. Dissection was carried down to the cross lock, which was removed in a similar fashion uneventfully. I then irrigated out both of these wounds. They were closed with 3-0 nylon suture. We then turned our attention to the distal fibula. With the tibial cross locks removed, I went ahead and ellipsed out the full sinus tracts in the distal fibula wound. Ultimately, this left a gap of about 1 cm. I carried the dissection down full thickness and excised this all out. I got down to the fibula and released the soft tissue overlying the distal fibula plate. The distal screws were removed first and then the proximal screws. This all came out uneventfully. The plate was removed. I then used a curette to debride all tissue that was nonviable or looked contaminated. I used a rongeur as well to do the debridement. I continued this until I met what looked like healthy viable tissue remaining. The area was copiously irrigated using the cysto tubing and multiple liters of fluid. Nothing looked like it went around medially. I took great care not to pass instrument medially towards the tibia as well. Once I had gotten this completely clean, I went ahead and used some [address] some trauma mattress sutures and get the skin reapproximated. I then closed remainder of the wound with simple interrupted 3-0 nylon sutures. Tourniquet was deflated. The skin all pinked up and looked viable. I went ahead and dressed the wounds with Xeroform, 4x4's , sterile Webril, and a posterior and anterior slab splint was applied with the ankle in dorsiflexion. Please note that prior to closing the wound, I had placed a medium Hemovac drain, which was brought out proximally. Care was taken not to sew in the drain. Also I did obtain multiple cultures during the debridement including some tissue cultures. He was woken up and taken to the recovery room in stable condition. POSTOPERATIVE PLAN: Rex will spend the night in the hospital. I am going to put him on IV vancomycin and Zosyn. We will follow the cultures and tailor the antibiotics appropriately. I am going to have Dr. Giovanni Salamanca, our infectious disease doctor, see him and will be in communication with him. We will try to be very aggressive with this and stay ahead of it. I am optimistic that there is no infection of the tibial nail, time will tell. I am certainly hoping that we can get the tibia to heal and then if we need to take out the anna , we can certainly do that at a future date. [id number]/[facility] #: [id number] MTDD
--- NOTE | 2017-02-19 02:51 | DS ---
DISCHARGE SUMMARY: DATE OF ADMISSION: 02/16/17 DATE OF DISCHARGE: 02/18/17 ATTENDING PHYSICIAN: Dr. Amadeo Pedroza (DICTATED BY BENIGNO DOYLE) ADMISSION DIAGNOSES: Leg wound breakdown and postoperative wound infection status post open reduction internal fixation, left distal fibula and intramedullary fixation of the left distal one-third tibial fracture that was done on 12/13/16. DISCHARGE DIAGNOSES: Leg wound breakdown and postoperative wound infection status post open reduction internal fixation, left distal fibula and intramedullary fixation of the left distal one-third tibial fracture that was done on 12/13/16. SURGERY PERFORMED: 1. Irrigation and debridement, left distal fibula, postoperative wound infection. 2. Removal of distal plate and screws from the fibula. 3. Removal of proximal tibial cross lock hardware. HOSPITAL COURSE: The patient is a 46-year-old male who sustained a tib-fib fracture in mid November of this year. He had some varus angulation and he had options given to him at that time of casting versus internal fixation. He elected to proceed with internal fixation understanding the possibility of an infection as being a risk to having the procedure performed. The surgery went well and he had healed uneventfully until about 7 weeks postop, he developed some granulation tissue and some drainage at the fibular region and developed a second area 2 weeks later which was draining. It was felt that removing the plate and doing an irrigation and operative debridement, this will be most beneficial for him at this point. The patient elected to proceed. He was taken to the operating room under the care of Dr. Amadeo Pedroza on the day of 02/16/17 for the aforementioned procedure. He tolerated the procedure well, left the operating room in stable condition. Postoperatively, his Hemovac drain was removed on postoperative day #1 and his wound was evaluated by Dr. Pedroza later that afternoon. He progressed well, maintaining a nonweightbearing status on the left lower extremity and was seen by Dr. Giovanni Salamanca from Infectious Disease, who recommended Ancef 2 g q.8 hours x6 weeks. A PICC line was placed on 02/18/17 for his antibiotic treatment uneventfully. The patient's pain was under excellent control and he was found to be stable for discharge to home with home infusions learned. CONDITION ON DISCHARGE: He is afebrile. His vital signs are stable. His neurovascular status is intact in the left lower extremity. PICC line placed without difficulty. PLAN: Discharge to home, 02/18/17, nonweightbearing left lower extremity. He will perform self-infusion of Ancef 2 g q.[address] Pedroza would like to see the patient in followup in [place] office on Tuesday, . Dr. Salamanca would like to see the patient in followup in roughly 2 weeks in his office. He was provided with a prescription of Roxicodone 5 mg 1 to 2 tablets q.4 hours p.r.n. pain, #90 tablets, sent to the pharmacy. If he has any difficulties with fever, chills, nausea, vomiting, increased pain in the left lower extremity, the office will be contacted prior to his scheduled appointment followups. BENIGNO DOYLE [id number]/[facility] #: [id number] RELL
== END 2017-02-18 14:00 | disposition home or self-care (01) ==
LOC: OR 08:13 → INTOOBSV 14:46 → SSU 14:46
PROVIDERS: ADMIT Orthopaedic Surgery Hand Surgery; ATTEND Orthopaedic Surgery Hand Surgery
DX: T84.623A Infection and inflammatory reaction due to internal fixation device of left tibia, initial encounter (principal); Y83.8 Other surgical procedures as the cause of abnormal reaction of the patient, or of later complication, without mention of misadventure at the time of the procedure; F17.200 Nicotine dependence, unspecified, uncomplicated
CPT/HCPCS: 36415; 80048; 85014; 85018; 86140; 87070; 87073; 87077; 87186; 87205; 87640; 87641; 88300; 88304; 94760; 96372; 96374; 96375; 96376; A9270-GY; C1751; G0378; J0690; J1100; J1170; J1650; J1885; J2250; J2405; J2543; J2704; J3010; J3370

== ENCOUNTER 2018-09-13 08:17 | Emergency (ER) | payer OTHER ==
[2018-09-13 08:46] VITALS: BP 153/99
--- NOTE | 2018-09-13 09:00 | UC ---
Throat Pain/Nasal Edi HPI - HPI Summary HPI Summary: Patient presents to urgent care reporting 3-4 days progressive head congestion sinus pressure and green discharge and a bad odor and taste in his mouth. Patient denies fevers or chills. Patient took some Tylenol this morning for headache and discomfort that helped. Patient denies fevers or chills. No nausea vomiting. Patient does smoke cigarettes daily. Patient does drink alcohol most days. Patient works outside as a internship coordinator. Medications reviewed this visit - History of Current Complaint Chief Complaint: UCRespiratory Stated Complaint: SINUS Time Seen by Provider: 09/13/18 08:49 Hx Obtained From: Patient Onset/Duration: Sudden Onset Severity: Mild Pain Intensity: 0 Pain Scale Used: 0-10 Numeric Cough: Nonproductive - Allergies/Home Medications Allergies/Adverse Reactions: Allergies Allergy/AdvReac Type Severity Reaction Status Date / Time No Known Allergies Allergy Verified 09/13/18 08:39 PMH/Surg Hx/FS Hx/Imm Hx Previously Healthy: Yes - Surgical History Surgical History: Yes Surgery Procedure, Year, and Place: 11/2016[place] [place] [place]OLOGY AND BIOPSY[facility] - Family History Known Family History: Positive: Hypertension, Non-Contributory - Social History Occupation: Employed Full-time Lives: With Family Alcohol Use: Daily Alcohol Amount: 2-3 beers daily Substance Use Type: Marijuana Substance Use Comment - Amount & Last Used: NOT RECENT Smoking Status (MU): Light Every Day Tobacco Smoker Type: Cigarettes Amount Used/How Often: 1/4 PPD FOR 20+ YRS Length of Time of Smoking/Using Tobacco: 20+ YRS Have You Smoked in the Last Year: Yes - Immunization History Most Recent Influenza Vaccination: NONE 2015 Most Recent Tetanus Shot: UTD Most Recent Pneumonia Vaccination: N/A Review of Systems All Other Systems Reviewed And Are Negative: Yes Constitutional: Positive: Negative Skin: Positive: Negative ENT: Positive: Nasal Discharge, Sinus Congestion, Sinus Pain/Tenderness. Negative: Sore Throat Respiratory: Positive: Negative Cardiovascular: Positive: Negative Physical Exam - Summary Physical Exam Summary: Vital Signs Reviewed: Yes A+Ox3, no distress Eyes: Conjunctiva Clear, ASHLEE. EOM intact and full ENT: Hearing grossly normal left ear cerumen impaction - manual debridement, TM x 2 clear, turbinates very inflammed, boggy, thick green secretions, + thick PND, +sinus congestion, mmoist, uvula midline, no exudate, no erythema Neck: Positive: Supple Respiratory: Positive: No respiratory distress, No accessory muscle use + CTA throughout no w/r Cardiovascular: RRR nl s1, s2 no m/r CBT <2 sec abd soft + BS nt/nd no guarding, no distension Musculoskeletal Exam: POE x 4 without difficulty Strength Intact, ROM Intact Neurological: Positive: Alert, + sensation throughout Psychological: Positive: Normal Response To Family Skin: Positive: no rash, no ecchymosis Triage Information Reviewed: Yes Vital Signs: Initial Vital Signs Temp 98.1 F 09/13/18 08:40 Pulse 87 09/13/18 08:40 Resp 16 09/13/18 08:40 BP 153/99 09/13/18 08:40 Pulse Ox 100 09/13/18 08:40 Throat Pain/Nasal Course/Dx - Course Course Of Treatment: Patient presents to urgent care reporting 3-4 days of progressive sinus heaviness and pressure thick green secretions postnasal drip. Patient vital signs related noted on elevated blood pressure. Patient does have a history of hypertension took his meds this morning patient with thick secretions in his nose and postnasal drip. Patient is a smoker and frequenlty drinks alcohol. Will start abx, flonase. Cautioned decongestants related to BP Pt had left cerumen impaction - manually removed by me reviewed with pt Q tip use, OTC debrox, . - Differential Dx/Diagnosis Provider Diagnosis: Rhinosinusitis, Cerumen impaction Discharge - Sign-Out/Discharge Documenting (check all that apply): Patient Departure All imaging exams completed and their final reports reviewed: No Studies - Discharge Plan Condition: Stable Disposition: HOME Prescriptions: Amoxicillin PO (*) [Amoxicillin 500 MG CAP*] 500 mg PO Q12H #20 cap Fluticasone NASAL SPRAY 50MCG* [Flonase NASAL SPRAY 50MCG*] 2 spray BOTH NARES DAILY #1 btl Patient Education Materials: Cerumen Impaction (ED), Rhinosinusitis (ED) Referrals: Jurgen Riley MD [Primary Care Provider] - Additional Instructions: - Stay well hydrated. Drink plenty of non-alcoholic, non-caffinated beverages. - Alternate ibuprofen (Advil, Motrin) 600mg and Tylenol every 3 hours for pain or fever. Take with food. Do NOT take for more than 4-5 days. - These infections are spread by secretions - do NOT share eating or drinking utensils - clean items you share with other people such as cell phones, computer mouse, TV remote, computer tablets,etc. Once you have been antibiotics for 2 days, change your toothbrush and your pillowcase. - get plenty of restful sleep - humidify the air in the room where you sleep - boil water, run a hot steam shower, vaporizer, cups of water by heat register - Take antibiotics as prescribed - use nasal spray as prescribed - contact your doctor or return with questions or concerns - Billing Disposition and Condition Condition: STABLE Disposition: Home
== END 2018-09-13 09:21 | disposition home or self-care (01) ==
LOC: UCCORT 08:17
DX: J32.9 Chronic sinusitis, unspecified (principal); H61.22 Impacted cerumen, left ear; F17.210 Nicotine dependence, cigarettes, uncomplicated
CPT/HCPCS: 99212; G0463